=== PATIENT | male | born 1935 | race Caucasian/White ===

== ENCOUNTER 2017-04-25 11:19 | Inpatient (IN) ==
[2017-04-25 11:50] LABS: Basophils # 0.1 10*3/uL (0.0-0.2); Basophils % 0.5 % (0.0-0.8); Eosinophils # 0.3 10*3/uL (0.0-0.87); Eosinophils % 2.1 % (0.00-10.9); Hematocrit 44.2 VOL% (42.0-52.0); Hemoglobin 15.4 GM/DL (14.0-18.0); Immature Granulocytes % 0.4 %; Immature Granulocytes Absolute 0.06 #; Lymphocytes # 1.9 10*3/uL (1.4-4.0); Lymphocytes % 14.1 % (21.2-54.2); Mean Corpuscular HGB Conc 34.8 GM/DL (32-36); Mean Corpuscular Hemoglobin 32 PG (27-34); Mean Corpuscular Volume 90.6 FL (87-102); Mean Platelet Volume 10.2 FL (9.6-12.0); Monocytes # 1.1 10*3/uL (0.11-0.8); Monocytes % 7.8 % (1.7-12.7); Neutrophils # 10.3 10*3/uL (1.4-7.4); Neutrophils % 75.1 % (38.7-73.9); Platelet Count 228 T/CUMM (130-400); Red Blood Count 4.88 MC/CUMM (3.8-5.5); Red Cell Distribution Width 13.7 % (9.3-17.3); White Blood Count 13.7 T/CUMM (4-12)
--- NOTE | 2017-04-25 11:50 | EKG Report ---
Stationary ECG Study [facility] ER Test Date: 04/25/2017 11:26:38 AM Pat Name: GA WEEKS Department: Room: Gender: M Domain Architect: : [id number] Requested by: Rashel Ramos Order Number: [id number] Reading MD: FRANCOIS SALAS Intervals [place] Rate: 73 P: 33 CT: 190 QRS: 1 QRSD: 114 T: -4 QT: 418 QTc: 445 Interpretive Statements SINUS RHYTHM INCOMPLETE RIGHT BUNDLE BRANCH BLOCK VOLTAGE CRITERIA FOR LVH INFERIOR MYOCARDIAL INFARCTION, OF INDETERMINATE AGE ANTEROLATERAL MYOCARDIAL INFARCTION, OF INDETERMINATE AGE Electronically Signed On 04-25-17 18:55:23 CDT by FRANCOIS SALAS [email or web address]
--- NOTE | 2017-04-25 12:07 | XRay Report ---
Exam: XR chest 1V portable Date: 04/25/2017 11:43 AM Indication: Cardiomegaly Comparison: None Findings:: Cardiomegaly is present with previous sternotomy and ASVD. External cardiac leads are present. Mild interstitial edema present. Bony structures reveal previous cortical anchor screws over the left humeral head. Small granulomas present over the left upper chest. Impression: 1. Cardiomegaly with interstitial edema and previous sternotomy. 2. Granuloma changes 3. Findings slightly worse when compared to previous exam PROCEDURE INTERPRETED AT [facility] DEPARTMENT OF RADIOLOGY Final Report Signed by: Dr. Christiano Dumont
[2017-04-25 12:11] LABS: INR 1.8; PT Patient Result 20.1 SECS
--- NOTE | 2017-04-25 12:27 | CT Report ---
Exam: CT scan of brain without contrast Date: 04/25/2017 Indication: Hemiparesthesias Comparison: 03/25/2016 Patient's classification: Emergency department Technical: Images were obtained from the skull base to the vertex without the use of intravenous contrast. Dose reduction was performed with decreasing kv and mA and automated exposure Total DLP: 1025.6 mGy*cm Findings: Small vessel ischemic changes are present. The ventricles are enlarged. Atrophy of the cerebellum and cerebral hemispheres present. No obvious acute hemorrhage or infarction or mass effect. The paranasal sinuses are intact. Globes are unremarkable. Vascular plaque noted Impression: 1. Global atrophy and diffuse small vessel ischemic change without acute hemorrhage infarction or mass effect PROCEDURE INTERPRETED AT [facility] DEPARTMENT OF RADIOLOGY Final Report Signed by: Dr. Christiano Dumont
--- NOTE | 2017-04-25 13:07 | Emergency Department Note ---
IThad Emily, am scribing for, and in the presence of, Rashel Navas MD 11:52. Yosef Santana Phillip K, MD, personally performed the services described in this documentation, ascribed by Mallika Oneil in my presence, and it is both accurate and complete . Arrival - Arrival Chief Complaint: Neuro Stated Complaint: neuro symptoms Limitations: Altered Mental Status, Physical Limitation (expressive aphasia) Source: Family (daughter) - History of Present Illness HPI Narrative: Pt is a 81 y/o male who came to ED by EMS for further evaluation of weakness that onset Saturday. Daughter states pt has been talking sporadically, but none today. She states that pt has sitter, who reported pt's weakness on right side now. He has had several strokes with last leaving him with left sided weakness residual and undergoing physical therapy with walker use (Mar 2016) and had aphasia with other strokes. Family notes sitter was saying pt is having difficulty getting out of bed now, when it was just a chair before. He is on Coumadin due to all the strokes. Pt's team of providers are Dr. Ho PCP, Dr. Martinez in [place], and Dr. Gomez neurologist. Onset (ago): day(s) Consistency: constant Severity: moderate Severity scale (1-10): 5 Quality: other (weakness) Allergies/Adverse Reactions: Allergies Allergy/AdvReac Type Severity Reaction Status Date / Time No Known Allergies Allergy Unverified 03/25/16 19:10 Home Medications: Home Medications Medication Instructions Recorded Confirmed Type Atenolol 25 mg PO DAILY W/SUPPER 03/25/16 03/27/16 History Cetirizine Tab [ZyrTEC Tab] 10 mg PO DAILY 03/25/16 03/27/16 History Cholecalciferol (Vitamin D3) 2,000 unit PO DAILY 03/25/16 03/27/16 History [Vitamin D3] Glimepiride 2 mg PO DAILY 03/25/16 03/27/16 History Levothyroxine Tab [Synthroid Tab] 100 mcg PO DAILY W/SUPPER 03/25/16 03/27/16 History Lisinopril 40 mg PO DAILY 03/25/16 03/27/16 History Metformin HCl 1,000 mg PO DAILY 03/25/16 03/27/16 History Metformin HCl 500 mg PO DAILY W/SUPPER 03/25/16 03/27/16 History amLODIPine [Norvasc] 5 mg PO DAILY 03/25/16 03/27/16 History sitaGLIPtin [Januvia] 100 mg PO DAILY 03/25/16 03/27/16 History Glimepiride 1 mg PO DAILY W/SUPPER 03/26/16 03/27/16 History Warfarin [Coumadin] 2.5 mg PO MoTuThSa@1800 tablet 04/11/16 Rx Warfarin [Coumadin] 5 mg PO SuWeFr@1800 tablet 04/11/16 Rx Review of System - Review of System ROS unobtainable: due to mental status (secondary to expressive aphasia) Medical,Surgical,& Family Hx - Medical History Cardio: History of: CAD, Hypertension Neurology: History of: Cerebrovascular Accident, TIA HEENT: History of: Ear Problem (wears hearing aids), Eye Problem (wears glasses) Endocrine: History of: Diabetes Mellitus (NIDDM) (type 2), Thyroid Disorder ( hypothyroidism) Respiratory: History of: Respiratory Problems (hx SOB small vessel disease) Genitourinary: History of: Prostate Problems (REMOVAL S/P CA) Gastrointestinal: History of: Hemorrhoids (hemorrhiodectomy 1997) - Surgical History Cardiac Surgeries: Sugical HX of: Cardiac Surgery (CABG 2009) HEENT Surgeries: Surgical HX of: Eye Surgery (eyelid cancer spot removed 2015) Patient denies: Tonsilectomy & Adenoidectomy Abdominal Surgeries: Patient denies: Appendectomy, Cholecystectomy Reproductive Surgeries: Surgical HX of;: Prostate Surgery (1999) Orthopedic Surgeries: Surgical HX of;: Orthopedic Surgery (left rotator cuff repair) - Family History Family History: Reports;: Family Cancer (mother-ovarian, sister-lymphoma, brother-lung, brother-bone), Family Heart Disease (brother, sister) Denies;: Family Diabetes, Family Stroke - Social History Smoking Status: Never smoker Exam Vital Signs: Vital Signs Temperature 98.0 F 04/25/17 11:25 Pulse Rate 69 04/25/17 12:15 Respiratory Rate 18 04/25/17 12:15 Blood Pressure 142/86 04/25/17 12:15 O2 Sat by Pulse Oximetry 99 04/25/17 12:15 - General Exam limited due to: other (Exam limited secondary to expressive aphasia) General appearance: alert - Head Head exam: Present: atraumatic, normocephalic - Eye Eye exam: Present: PERRL, EOMI - ENT ENT exam: Present: mucous membranes moist. Absent: mucous membranes dry - Neck Neck exam: Present: full ROM - Chest Chest inspection: Present: symmetric chest wall rise - Respiratory Respiratory exam: Present: rales (bibasilar rales). Absent: normal lung sounds bilaterally, accessory muscle use, respiratory distress - Cardiovascular Cardiovascular exam: Present: regular rate, normal rhythm, normal heart sounds. Absent: murmur, gallop - Abdominal Exam Abdominal exam: Present: soft - Extremities Exam Extremities exam: Present: pedal edema (trace of edema in RLE) - Neurological Exam Neurological exam: Present: alert, CN II-XII intact, other (difficulty comprehending commands). Absent: motor sensory deficit - Skin Skin exam: Present: warm, dry Course Course Narrative: Patient discussed with hospitalist who will admit for further evaluation and neurology consult. Results - Labs CBC & BMP: 04/25/17 11:39 Lab Results: I have reviewed the patients labs Labs: Laboratory Tests 04/25/17 11:39 WBC 13.7 H RBC 4.88 Hgb 15.4 Hct 44.2 Plt Count 228 Neut % (Auto) 75.1 H Lymph % (Auto) 14.1 L Neut # (Auto) 10.3 H [place] # (Auto) 1.1 H - EKG EKG results: interpreted by ERMD (Inferior myocardial infarction and anterolateral myocardial infarction of indeterminate age, voltage criteria for LVH; incomplete RBBB), sinus rhythm (73) - Diagnostic Findings Procedure: Chest x-ray: report reviewed by me (1. Cardiomegaly with interstitial edema and previous sternotomy. 2. Granuloma changes. 3. Findings slightly worse when compared to previous exam.), CT: report reviewed by me ( Head wo con: Global atrophy and diffuse small vessel ischemic change without acute hemorrhage infarction or mass effect.) Disposition Clinical Impression: Possible CVA, Acquired aphasia, Right sided weakness, Cerebrovascular accident Case discussed with: patient, patient's family, patient's physician Disposition: Still a Patient Condition: Guarded Additional Instructions: Admit to the hospitalist.
[2017-04-25 13:16] LABS: Bilirubin,Total 0.8 MG/DL (0.2-1.0); Calcium 9.4 MG/DL (8.5-10.1); Osmolality,Calculated 284.5 MOS/KG (273-304); Potassium 4.1 MMOL/L (3.5-5.1); Total Protein 7.5 G/DL (6.4-8.3)
[2017-04-25] MEDS ORDERED: LABETALOL 20 MG/4 ML SYRINGE IV PRN (13:41)
--- NOTE | 2017-04-25 14:04 | Hospitalist History & Physical ---
Assessment and Plan - Time spent with patient Time spent with patient: Greater than 30 minutes (1) Expressive aphasia Status: Acute Assessment and plan: 81-year-old white male with history of hypertension, diabetes, for previous strokes on Coumadin, CAD status post CABG, prostate cancer status post prostatectomy admitted by the hospitalist service with new onset expressive aphasia and right upper and lower extremity weakness. Will keep patient n.p.o. for now and start IV fluids. Will get MRI of the head and MRA of the neck, echo , lipid panel, hemoglobin A1c, x-ray of right elbow and right hip to rule out fracture or dislocation, PT/OT/ST evaluation. Will also consult neurology who has seen him previously. Dr. Palma has seen and examined patient and further recommendations to follow. Current Visit: Yes (2) Acute ischemic stroke Status: Acute Current Visit: No (3) Type 2 diabetes mellitus Status: Chronic Current Visit: No (4) Chronic anticoagulation Status: Chronic Current Visit: No (5) Hypertension Status: Chronic Current Visit: No (6) Hypothyroidism Status: Chronic Current Visit: No (7) History of stroke Status: Acute Current Visit: No (8) Right sided weakness Status: Acute Current Visit: Yes History of Present Illness Chief complaint: Right-sided weakness History of present illness: Mr. Murphy is a 81 year old white male with history of 4 previous strokes on Coumadin, diabetes, hypertension, prostate cancer status post prostatectomy, and CAD status post CABG presenting to the ED with a 3-4 day history of progressive left-sided weakness, aphasia, and falls. Patient's daughter is in the room and his entire history was taken from her. She states patient's last stroke was March 2016. His baseline is assistance to standing with patient able to ambulate with a walker. He also could speak though he has some expressive aphasia at times. He has 24 hour sitters with him and his demented and home health physical therapy as of the last few weeks. Patient's daughter states he has fallen twice and hit his right elbow. She states after the fall this morning he would no longer weight-bear on the right lower extremity. He is moving all fours, but it is very difficult to evaluate because he will not follow commands. He is alert and looking around but he is not speaking. He is also hard of hearing. He is afebrile and vital signs are stable. His INR is therapeutic at 1.8 otherwise his labs are relatively unremarkable. They were unable to get a UA. Chest x-ray and CT of the head are normal. EKG shows incomplete right bundle branch block. After discussion with Dr. Navas ED physician Dr. Palma the admitting hospitalist, it was agreed patient would be admitted for further evaluation and treatment. Patient' s medications will be reconciled once they are entered into the system and he is a full code. Home Medications Medication Instructions Recorded Confirmed Type Atenolol 25 mg PO DAILY W/SUPPER 03/25/16 03/27/16 History Cetirizine Tab [ZyrTEC Tab] 10 mg PO DAILY 03/25/16 03/27/16 History Cholecalciferol (Vitamin D3) 2,000 unit PO DAILY 03/25/16 03/27/16 History [Vitamin D3] Glimepiride 2 mg PO DAILY 03/25/16 03/27/16 History Levothyroxine Tab [Synthroid Tab] 100 mcg PO DAILY W/SUPPER 03/25/16 03/27/16 History Lisinopril 40 mg PO DAILY 03/25/16 03/27/16 History Metformin HCl 1,000 mg PO DAILY 03/25/16 03/27/16 History Metformin HCl 500 mg PO DAILY W/SUPPER 03/25/16 03/27/16 History amLODIPine [Norvasc] 5 mg PO DAILY 03/25/16 03/27/16 History sitaGLIPtin [Januvia] 100 mg PO DAILY 03/25/16 03/27/16 History Glimepiride 1 mg PO DAILY W/SUPPER 03/26/16 03/27/16 History Warfarin [Coumadin] 2.5 mg PO MoTuThSa@1800 tablet 04/11/16 Rx Warfarin [Coumadin] 5 mg PO SuWeFr@1800 tablet 04/11/16 Rx Allergies Allergy/AdvReac Type Severity Reaction Status Date / Time No Known Allergies Allergy Unverified 03/25/16 19:10 Medical,Surgical,& Family Hx - Medical History Cardio: History of: CAD, Hypertension Neurology: History of: Cerebrovascular Accident, TIA HEENT: History of: Ear Problem (wears hearing aids), Eye Problem (wears glasses) Endocrine: History of: Diabetes Mellitus (NIDDM) (type 2), Thyroid Disorder ( hypothyroidism) Respiratory: History of: Respiratory Problems (hx SOB small vessel disease) Genitourinary: History of: Prostate Problems (REMOVAL S/P CA) Gastrointestinal: History of: Hemorrhoids (hemorrhiodectomy 1997) - Surgical History Cardiac Surgeries: Sugical HX of: Cardiac Surgery (CABG 2009) HEENT Surgeries: Surgical HX of: Eye Surgery (eyelid cancer spot removed 2015) Patient denies: Tonsilectomy & Adenoidectomy Abdominal Surgeries: Patient denies: Appendectomy, Cholecystectomy Reproductive Surgeries: Surgical HX of;: Prostate Surgery (1999) Orthopedic Surgeries: Surgical HX of;: Orthopedic Surgery (left rotator cuff repair) - Family History Family History: Reports;: Family Cancer (mother-ovarian, sister-lymphoma, brother-lung, brother-bone), Family Heart Disease (brother, sister) Denies;: Family Diabetes, Family Stroke - Social History Smoking Status: Never smoker Frequency of Alcohol Use: None Type of Drug Use: None Marital Status: Lives With:: Spouse Functional capacity: uses cane/walker ROS unobtainable: other (Due to expressive aphasia) Exam - Constitutional Vitals: Period Temp Pulse Resp BP Sys/[place] Pulse Ox Last 24 Hr 98.0 F-98.0 F 66-72 16-23 138-156/85-97 99-100 Exam: Constitutional System: No distress. [No] tremulousness. Head: Normocephalic, atraumatic. Ears, Nose and Throat System: No evidence of Otitis or Mastoiditis. No epistaxis or discharge Eyes System: Pupils equal, round, and reactive. Extraocular muscles intact. Neck: Supple, without adenopathy, [No] jugular venous distention. No thyromegaly , neck mass, or prior surgery apparent. Respiratory System: Chest [clear] to auscultation. Cardiovascular System: Heart with [regular] rate and rhythm. [No] murmur. GI System: Abdomen [soft], [non]tender. [Normo]active bowel sounds present. Small reducible umbilical hernia that is nontender Musculoskeletal System: limbs with [no] pedal edema. [Full] distal pulses. Moves bilateral lower extremities equally but unable to determine sensation or strength due to patient unable to follow commands, moves bilateral upper extremities but right upper extremity seems to be more sluggish than left. Right elbow is edematous and bruised the patient does not grimace with palpation. Neurological System: Expressive aphasia, unable to evaluate sensation, Babinski negative Psychiatric System: Patient is unable to converse Results - Labs CBC & BMP: 04/25/17 11:39 04/25/17 11:39 Lab Results: I have reviewed the past 24 hour labs - EKG EKG results: sinus rhythm - Impressions Incomplete right bundle branch block, LVH, inferior AK of indeterminate age, anterolateral myocardial infarction of indeterminate age - Diagnostic Findings Procedure: Chest x-ray: report reviewed by me (Cardiomegaly with interstitial edema and previous sternotomy, granuloma changes, findings slightly worse when compared to previous exam), CT: report reviewed by me (CT that shows global atrophy and diffuse small vessel ischemic change without acute hemorrhage infarction or mass-effect) Quality Measures - VTE Contraindication to Pharmacological VTE Prophylaxis: Already on Theraputic Agent , No Prophylaxis Needed - Stroke Onset of Symptoms Date: 04/23/17 Symptom Onset Unknown: Yes
[2017-04-25 14:14] LABS: Risk Ratio 6.36; VLDL CHOLESTEROL 59.8 MG/DL
[2017-04-25 14:16] LABS: Troponin I Only 0.069 NG/ML (0.00-0.045)
--- NOTE | 2017-04-25 14:44 | XRay Report ---
Exam: XR elbow 2V RT Date: 04/25/2017 1:56 PM Indication: Pain secondary to fall Comparison: None Technical: AP lateral oblique image 3 views Findings: The radial head appears intact there is heterotopic calcification present along the coronoid process of the ulna. No obvious joint effusion or hemarthrosis present. Degenerative change present in the posterior olecranon region with mild degenerative changes of the medial and lateral epicondyles. Impression: Degenerative arthritic change without obvious acute fracture. PROCEDURE INTERPRETED AT [facility] DEPARTMENT OF RADIOLOGY Final Report Signed by: Dr. Christiano Dumont
--- NOTE | 2017-04-25 14:45 | XRay Report ---
Exam: XR hip 2V RT Date: 04/25/2017 1:56 PM Indication: Pain secondary to fall Comparison: None Technical: AP lateral views Findings: The pubic rami are intact. The greater lesser trochanteric regions are intact the femoral head is seated within acetabular region. The proximal femoral shaft is unremarkable. Impression: 1. No obvious fracture dislocation with mild degenerative arthritic change present. PROCEDURE INTERPRETED AT [facility] DEPARTMENT OF RADIOLOGY Final Report Signed by: Dr. Christiano Duomnt
--- NOTE | 2017-04-25 16:07 | XRay Report ---
XR forearm BI, 2 views; XR hand, 2V BI Clinical Information: MRI Clearance Comparison: None available Findings: 3.8 mm radiopaque density is adjacent to the MCP joint of the pointing finger of the left hand, which is indeterminate. No definite acute fractures are identified. Otherwise, no radiopaque foreign bodies are identified in the soft tissues. Generalized osteopenia is noted. Degenerative changes at the elbow joint are noted with no joint effusion. There is also degenerative changes at the radiocarpal joint with widening of the scapholunate interval (only well visualized on the right) suggesting chronic slack wrist deformity. Degenerative changes and near complete ankylosis of the PIP joint of the left hand pointing finger is noted. Impression: Metallic/radiopaque density adjacent to the MCP joint of the pointing finger of the left hand measures up to 3.8 mm maximum dimension and is indeterminate. Otherwise, no radiopaque/metallic foreign bodies visualized in the soft tissues of the bilateral forearms or right hand. No acute findings. Degenerative changes as detailed above. PROCEDURE INTERPRETED AT [facility] DEPARTMENT OF RADIOLOGY Final Report Signed by: Shukri Ellington
--- NOTE | 2017-04-25 18:03 | Magnetic Resonance Report ---
MR head/brain wo con Indication: Stroke Comparison: Noncontrast CT head dated 02/24/2017. Prior MRI brain 03/26/2016 Technique: Using 1.5 Lena magnet, multisequence multiplanar MR imaging of the brain was performed without the administration of intravenous contrast. Findings: Extensive patient motion limits evaluation for subtle findings. The study is limited with only sagittal T1 and axial diffusion, axial T2 FLAIR and axial ADC map imaging sequences obtained. The subsequent MRA carotids was canceled due to extensive patient motion. Extensive atrophy is noted with prominence of sulci and ventricles. Punctate focus of increased diffusion signal within the left thalamus posteriorly and inferiorly without definite ADC map abnormality although patient motion may limit correlation of this finding. Otherwise, there is no obvious evidence of restricted diffusion. Extensive T2/FLAIR signal hyperintensities are noted bilaterally within the periventricular white matter as well as the bilateral centrum semiovale. These are most compatible with microvascular ischemic changes. The basal cisterns appear patent. Similar prominence of the lateral ventricles may represent a degree of underlying normal pressure hydrocephalus. Impression: 1. Limited study due to patient motion. 2. Possible focus of restricted diffusion within the posterior left thalamus suggestive of focal lacunar infarct. Evaluation is limited due to extensive patient motion. Correlate with clinical symptomatology. 3. No mass effect or midline shift. Similar prominence of the ventricles may represent a degree of underlying normal pressure hydrocephalus. MRA carotids will not be performed due to extensive patient motion. 04/25/2017 5:53 PM PROCEDURE INTERPRETED AT [facility] DEPARTMENT OF RADIOLOGY Final Report Signed by: Shukri Ellington
[2017-04-25 18:37] LABS: Apearance,Urine CLEAR (Clear); Bilirubin,Urine Negative (Negative); Blood, Urine Negative (Negative); Glucose,Urine (UA) Negative (Negative); Ketones,Urine Negative (Negative); Mucus,Urine Occasional /LPF (Occasional); Nitrite,Urine Negative (Negative); Protein,Urine 30 MG/DL; Urine Color Yellow (Yellow); Urine Specific Gravity 1.026 (1.001-1.035); WBC,Urine 1 /HPF (0-6)
[2017-04-25] MEDS: WARFARIN 3 MG TABLET PO SCH (18:43)
[2017-04-25] MEDS: ASPIRIN EC 81 MG TABLET PO SCH (18:43)
[2017-04-25] MEDS: SODIUM CHLORIDE 0.9% 1,000 ML IV SCH (18:44)
--- NOTE | 2017-04-25 20:13 | ECHO Report ---
Perla Murphy Exam Date: 04/25/2017 16:38 Referring Physician: Technologist: Abi Hughes RDCS Age: 81 Ht (in): 72 Wt (lb): 200 Gender: M Exam Location: [facility] Echo Indications: Expressive aphasia, Acute ischemic stroke, NIDDM, Chronic anticoagulation, CAD with previous CABG, Falls, Hypothyroidism, Right sided weakness BP: 150 / 92 HR: 68 Rhythm: Sinus Technical Quality: Poor IMPRESSIONS At least moderately reduced LV systolic function with ejection fraction estimated at 35%. Grade 1/4 diastolic dysfunction. Mild concentric left ventricular hypertrophy. Mild aortic, tricuspid and pulmonic regurgitation. There is both mitral and aortic sclerosis without significant stenosis. Please note that the valves in the study are suboptimally visualized. MEASUREMENTS (Male / Female) Normal Values 2D ECHO LV Diastolic Diameter PLAX 4.9 cm 4.2 - 5.9 / 3.9 - 5.3 cm LV Systolic Diameter PLAX 4.1 cm LV Fractional Shortening PLAX 15.8 % IVS Diastolic Thickness 1.2 cm 0.6 - 1.0 / 0.6 - 0.9 cm LVPW Diastolic Thickness 1.2 cm 0.6 - 1.0 / 0.6 - 0.9 cm RV Internal Dim ED PLAX 2.9 cm Aortic Root Diameter 3.4 cm LA Systolic Diameter LX 3.6 cm 3.0 - 4.0 / 2.7 - 3.8 cm DOPPLER TR Peak Velocity 231.0 cm/s TR Peak Gradient 21.3 mmHg FINDINGS Left Ventricle Normal left ventricular cavity size. Mild left ventricular hypertrophy. Left ventricular ejection fraction is estimated at 35 %. There is poor endocardial resolution which hinders regional wall motion assessment. There is grade 1/4 diastolic dysfunction. Right Ventricle The right ventricle is normal in size and function. Right Atrium The right atrium is normal in size. Left Atrium The left atrium is normal in size. Mitral Valve Morphologically normal mitral valve without significant stenosis or prolapse. There is no mitral regurgitation. Aortic Valve Mild aortic valve sclerosis without stenosis. Trace to mild aortic valve regurgitation. Tricuspid Valve Morphologically normal tricuspid valve. Trace to mild tricuspid valve regurgitation. Tricuspid regurgitation velocities suggest a PAP of 31 mmHg. Pulmonic Valve Morphologically normal pulmonic valve. Trace pulmonary valve regurgitation. Pericardium Normal pericardium without effusion. Aorta Normal ascending aorta dimension. Lisa Vega MD (Electronically Signed) Final Date: 25 April 2017 20:12
[2017-04-25] MEDS: GLIMEPIRIDE 4 MG TABLET PO SCH ×2 (21:08→23:08)
[2017-04-25] MEDS: ATENOLOL 25 MG TABLET PO SCH ×2 (21:08→23:08)
[2017-04-26] MEDS: SODIUM CHLORIDE 0.9% 1,000 ML IV SCH ×2 (02:47→11:25)
[2017-04-26 08:45] LABS: Basophils # 0.1 10*3/uL (0.0-0.2); Basophils % 0.7 % (0.0-0.8); Eosinophils # 0.4 10*3/uL (0.0-0.87); Eosinophils % 4.6 % (0.00-10.9); Hematocrit 39.9 VOL% (42.0-52.0); Hemoglobin 13.7 GM/DL (14.0-18.0); Immature Granulocytes % 0.4 %; Immature Granulocytes Absolute 0.03 #; Lymphocytes # 2.1 10*3/uL (1.4-4.0); Lymphocytes % 25.7 % (21.2-54.2); Mean Corpuscular HGB Conc 34.3 GM/DL (32-36); Mean Corpuscular Hemoglobin 32 PG (27-34); Mean Corpuscular Volume 91.7 FL (87-102); Mean Platelet Volume 10.7 FL (9.6-12.0); Monocytes # 0.8 10*3/uL (0.11-0.8); Monocytes % 9.3 % (1.7-12.7); Neutrophils # 4.9 10*3/uL (1.4-7.4); Neutrophils % 59.3 % (38.7-73.9); Platelet Count 217 T/CUMM (130-400); Red Blood Count 4.35 MC/CUMM (3.8-5.5); Red Cell Distribution Width 13.9 % (9.3-17.3); White Blood Count 8.2 T/CUMM (4-12)
[2017-04-26 09:11] LABS: Calcium 8.4 MG/DL (8.5-10.1); INR 1.7; Osmolality,Calculated 281.3 MOS/KG (273-304); PT Patient Result 18.5 SECS
[2017-04-26] MEDS ORDERED: FUROSEMIDE 40 MG/4 ML VIAL IV ONE (09:13)
--- NOTE | 2017-04-26 11:21 | Event Note ---
Patient gone for MRA
[2017-04-26] MEDS: CHOLECALCIFEROL 1,000 UNIT TABLET PO SCH (12:31)
[2017-04-26] MEDS: LEVOTHYROXINE 100 MCG TABLET PO SCH (12:31)
[2017-04-26] MEDS: sitaGLIPtin 100 MG TABLET PO SCH (12:31)
[2017-04-26] MEDS: ATENOLOL 25 MG TABLET PO SCH ×2 (12:31→20:53)
[2017-04-26] MEDS: ASPIRIN EC 81 MG TABLET PO SCH (12:31)
[2017-04-26] MEDS: LISINOPRIL 20 MG TABLET PO SCH (12:31)
[2017-04-26] MEDS: GLIMEPIRIDE 4 MG TABLET PO SCH ×2 (12:32→20:53)
--- NOTE | 2017-04-26 12:37 | Magnetic Resonance Report ---
Exam: MR angiography of the neck Exam date: April 26, 2017 1056 hours Indication: 81-year-old male with stroke Comparison: March 26, 2016 Technique: Magnetic resonance angiography was performed in routine fashion prior to and after administration administration of gadolinium-based intravenous contrast Findings: Motion artifact degrades the origins of the common carotid arteries. Coarsened caliber of the visualized common carotid arteries are normal with no impedance of flow. Marked tortuosity of the internal carotid arteries with focal narrowing in keeping left of expected 60-70% and approximately 20-30% on the right, unchanged in appearance since interval study. Mid to distal internal carotid arteries demonstrate normal caliber, flow and enhancement through the cavernous and supraclinoid segments. Visualized vertebral arteries are unremarkable Impression: 1. Again marked tortuosity of the proximal internal carotid arteries with suggestion of kinking and narrowing on the left of approximately 60-70% and up to 25% on the right. This can be further characterized with CTA head and neck PROCEDURE INTERPRETED AT [facility] DEPARTMENT OF RADIOLOGY Final Report Signed by: Eliseo Yun
--- NOTE | 2017-04-26 13:30 | Hospitalist Progress Note ---
Assessment and Plan (1) Acute CVA (cerebrovascular accident) Status: Acute Assessment and plan: 1)acute stroke- with worsened right side weakness and worsening aphasia- added asa to coumadin, monitor INR. MRi with possible left side stroke, motion artifact. MRA with narrowing of left carotid. Family has been interested in surgery so I will consult DR Jacobs though he may not be a great candidate for surgery. Dr Gomez to see, echo pending. Family would like for him to go to [facility]- referral made. PT and OT and ST to see. 2)DM- well controlled. 3)HTN- BP control ok after stroke- monitor 4)on coumadin- INR is 1.7. give extra 5mg today. Current Visit: No (2) Type 2 diabetes mellitus Status: Chronic Current Visit: No (3) Chronic anticoagulation Status: Chronic Current Visit: No (4) Hypertension Status: Chronic Current Visit: No (5) Hypothyroidism Status: Chronic Current Visit: No (6) Right sided weakness Status: Acute Current Visit: Yes Hospitalist: Subjective Interval history: Mr Murphy is more communicative this morning and tried to talk though I had a hard time understanding him. He is moving the left side of his body to command today and his right face looks less weak. He dose not move his right leg or arm , but moves the foot and fingers some. His sitter is with him this morning and was very helpful. She knows him well. He is hot and taking his clothes off. Exam - Constitutional Vitals: Period Temp Pulse Resp BP Sys/Motta Pulse Ox Last 24 Hr 97.0 F-98.2 F 67-84 18-20 132-173/72-98 90-100 General appearance: no acute distress, over weight - Eye Eye exam: Present: EOMI. Absent: scleral icterus - Respiratory Respiratory exam: Present: clear to auscultation bilaterally - Cardiovascular Cardiovascular exam: Present: regular rate and rhythm - GI/Abdominal GI/Abdominal exam: Present: normal bowel sounds, soft - Extremities Exam Extremities exam: Absent: edema - Neurological Exam Neurological exam: Present: alert, other (right face droop, moves left arm and leg with strength to command, talking today and alert and following conversation. right arm and leg weak, he does not move more than his fingers and foot.) Results - Labs CBC & BMP: 04/26/17 07:46 04/26/17 07:46 Lab Results: I have reviewed the past 24 hour labs Quality Measures - VTE Contraindication to Pharmacological VTE Prophylaxis: Already on Theraputic Agent , No Prophylaxis Needed - Stroke Onset of Symptoms Date: 04/23/17 Symptom Onset Unknown: Yes
[2017-04-26] MEDS: cephALEXin 500 MG CAPSULE PO SCH ×2 (16:37→20:53)
[2017-04-26] MEDS ORDERED: WARFARIN 5 MG TABLET PO ONE (18:00)
[2017-04-26] MEDS ORDERED: WARFARIN 3 MG TABLET PO SCH (18:00)
[2017-04-27 06:09] LABS: Basophils # 0.1 10*3/uL (0.0-0.2); Basophils % 0.8 % (0.0-0.8); Eosinophils # 0.4 10*3/uL (0.0-0.87); Eosinophils % 4.2 % (0.00-10.9); Hematocrit 41.8 VOL% (42.0-52.0); Hemoglobin 14.1 GM/DL (14.0-18.0); Immature Granulocytes % 0.8 %; Immature Granulocytes Absolute 0.07 #; Lymphocytes % 23.1 % (21.2-54.2); Mean Corpuscular HGB Conc 33.7 GM/DL (32-36); Mean Corpuscular Hemoglobin 31 PG (27-34); Mean Corpuscular Volume 92.1 FL (87-102); Mean Platelet Volume 10.2 FL (9.6-12.0); Monocytes # 0.9 10*3/uL (0.11-0.8); Monocytes % 10.2 % (1.7-12.7); Neutrophils # 5.4 10*3/uL (1.4-7.4); Neutrophils % 60.9 % (38.7-73.9); Platelet Count 218 T/CUMM (130-400); Red Blood Count 4.54 MC/CUMM (3.8-5.5); Red Cell Distribution Width 13.6 % (9.3-17.3); White Blood Count 8.9 T/CUMM (4-12)
[2017-04-27 06:32] LABS: INR 1.7; PT Patient Result 18.6 SECS
[2017-04-27 06:39] LABS: Calcium 8.8 MG/DL (8.5-10.1); Osmolality,Calculated 283.3 MOS/KG (273-304); Potassium 3.8 MMOL/L (3.5-5.1)
[2017-04-27] MEDS: LEVOTHYROXINE 100 MCG TABLET PO SCH (09:54)
[2017-04-27] MEDS: LISINOPRIL 20 MG TABLET PO SCH (09:54)
[2017-04-27] MEDS: cephALEXin 500 MG CAPSULE PO SCH ×2 (09:54→13:17)
[2017-04-27] MEDS: CHOLECALCIFEROL 1,000 UNIT TABLET PO SCH (09:54)
[2017-04-27] MEDS: GLIMEPIRIDE 4 MG TABLET PO SCH ×2 (09:55→21:58)
[2017-04-27] MEDS: ATENOLOL 25 MG TABLET PO SCH ×2 (09:55→21:58)
[2017-04-27] MEDS: ASPIRIN EC 81 MG TABLET PO SCH (09:55)
[2017-04-27] MEDS: sitaGLIPtin 100 MG TABLET PO SCH (09:57)
--- NOTE | 2017-04-27 11:44 | Hospitalist Progress Note ---
Assessment and Plan - Time spent with patient Time spent with patient: Less than 30 minutes (1) Expressive aphasia Status: Acute Assessment and plan: 81-year-old white male with history of hypertension, diabetes, for previous strokes on Coumadin, CAD status post CABG, prostate cancer status post prostatectomy admitted by the hospitalist service with new onset expressive aphasia and right upper and lower extremity weakness. Will keep patient n.p.o. for now and start IV fluids. Will get MRI of the head and MRA of the neck, echo , lipid panel, hemoglobin A1c, x-ray of right elbow and right hip to rule out fracture or dislocation, PT/OT/ST evaluation. Will also consult neurology who has seen him previously. Dr. Palma has seen and examined patient and further recommendations to follow. 04/27/2017 patient improved today. He is smiling but still nonverbal. MRI was showing possible left-sided stroke, MRA showing narrowing of the left carotid. He is moving all 4 spontaneously but not to command. He has been evaluated by speech and occupational therapy but the physical therapist evaluation is pending. Will check on this. Patient can transfer to [facility] rehab if okay with Dr. Gomez. neurology consult is pending. Aspirin and Coumadin have been started and we are monitoring INR which is 1.7 today. Patient did have some cellulitis to the left arm from IV infiltration and he was given a dose of Keflex for this. This seems to have resolved. Dr. Jacobs has also been consulted for carotids but he most likely will not recommend surgery until patient recovers from acute stroke. Patient's daughter is stating right now she is not interested in carotid surgery anyway but does not mind Dr. Jacobs following. Patient's blood pressures are up to 179/90 this morning. He is on atenolol and lisinopril. Will discuss with Dr. Pelaez if he feels it is necessary to adjust medications. Dr. Pelaez to see and examine patient and further recommendations to follow. Current Visit: Yes (2) Acute ischemic stroke Status: Acute Current Visit: No (3) Type 2 diabetes mellitus Status: Chronic Current Visit: No (4) Chronic anticoagulation Status: Chronic Current Visit: No (5) Hypertension Status: Chronic Current Visit: No (6) Hypothyroidism Status: Chronic Current Visit: No (7) History of stroke Status: Acute Current Visit: No (8) Right sided weakness Status: Acute Current Visit: Yes Hospitalist: Subjective Interval history: Patient is happy and smiling but still nonverbal. He is understanding and nodding his head yes or no appropriately but he still will not follow commands with motor function. Daughter is in the room and states that he did feed himself this morning. She is agreeable to [facility] rehab if possible. Daughter states she is not interested in carotid surgery but agreeable to have Dr. Jacobs closely monitor him. Patient has been seen by OT and ST but PT note is still pending. Exam - Constitutional Vitals: Period Temp Pulse Resp BP Sys/Motta Pulse Ox Last 24 Hr 96.5 F-98.2 F 61-83 18-22 130-179/64-90 92-99 Exam: 81-year-old white male, no acute distress, alert, nonverbal Chest clear CV regular rate and rhythm Abdomen soft nontender Extremities no edema, moving all fours spontaneously but will not follow commands Results - Labs CBC & BMP: 04/27/17 05:26 04/27/17 05:26 Lab Results: I have reviewed the past 24 hour labs Quality Measures - VTE Contraindication to Pharmacological VTE Prophylaxis: Already on Theraputic Agent , No Prophylaxis Needed - Stroke Onset of Symptoms Date: 04/23/17 Symptom Onset Unknown: Yes
[2017-04-27] MEDS ORDERED: diphenhydrAMINE CAP 25 MG CAPSULE PO PRN (11:55)
[2017-04-27] MEDS ORDERED: ACETAMINOPHEN 325 MG TABLET PO PRN ×2 (11:55)
--- NOTE | 2017-04-27 12:55 | Neurology Consult Note ---
History of Present Illness History of present illness: 81-year-old white gentleman with history of hypertension, diabetes, previous strokes on Coumadin, CAD status post CABG, prostate cancer status post prostatectomy admitted to the hospital with new onset of difficulty with speech and right upper and lower extremity weakness. This started couple of days ago. MRI of the brain revealed acute left thalamic infarct. MRA of the carotid artery reveals possible left carotid stenosis 60-70%. Ejection fraction of 35% on the current echo. Patient is on Coumadin and INR is 1.7. Home Medications Medication Instructions Recorded Confirmed Type Atenolol 25 mg PO BID 03/25/16 04/25/17 History Cetirizine Tab [ZyrTEC Tab] 10 mg PO QAM 03/25/16 04/25/17 History Cholecalciferol (Vitamin D3) 2,000 unit PO QAM 03/25/16 04/25/17 History [Vitamin D3] Levothyroxine Tab [Synthroid Tab] 100 mcg PO QAM 03/25/16 04/25/17 History Lisinopril 40 mg PO QAM 03/25/16 04/25/17 History sitaGLIPtin [Januvia] 100 mg PO QAM 03/25/16 04/25/17 History Glimepiride [Glimepiride] 4 mg PO BID 04/25/17 04/25/17 History Metformin HCl [Metformin HCl ER] 500 mg PO BID W/MEALS 04/25/17 04/25/17 History Warfarin Sodium [Coumadin] 6 mg PO SUTUTHSA@1800 04/25/17 04/25/17 History Warfarin [Coumadin] 3 mg PO MOWEFR@1800 04/25/17 04/25/17 History Allergies Allergy/AdvReac Type Severity Reaction Status Date / Time No Known Allergies Allergy Unverified 03/25/16 19:10 12 point system: reviewed and no additional remarkable complaints except as stated Medical,Surgical,& Family Hx - Medical History Cardio: History of: CAD, Hypertension Neurology: History of: Cerebrovascular Accident, TIA HEENT: History of: Ear Problem (wears hearing aids), Eye Problem (wears glasses) Endocrine: History of: Diabetes Mellitus (NIDDM) (type 2), Thyroid Disorder ( hypothyroidism) Respiratory: History of: Respiratory Problems (hx SOB small vessel disease) Genitourinary: History of: Prostate Problems (REMOVAL S/P CA) Gastrointestinal: History of: Hemorrhoids (hemorrhiodectomy 1997) - Surgical History Cardiac Surgeries: Sugical HX of: Cardiac Surgery (CABG 2009) HEENT Surgeries: Surgical HX of: Eye Surgery (eyelid cancer spot removed 2015) Patient denies: Tonsilectomy & Adenoidectomy Abdominal Surgeries: Patient denies: Appendectomy, Cholecystectomy Reproductive Surgeries: Surgical HX of;: Prostate Surgery (1999) Orthopedic Surgeries: Surgical HX of;: Orthopedic Surgery (left rotator cuff repair) - Family History Family History: Reports;: Family Cancer (mother-ovarian, sister-lymphoma, brother-lung, brother-bone), Family Heart Disease (brother, sister) Denies;: Family Diabetes, Family Stroke - Social History Smoking Status: Never smoker Frequency of Alcohol Use: None Type of Drug Use: None Exam - Constitutional Vitals: Period Temp Pulse Resp BP Sys/Motta Pulse Ox Last 24 Hr 96.5 F-98.0 F 61-79 18-22 130-179/64-90 92-96 Exam: GENERAL: Patient is in no acute distress. NECK: Neck is supple. There is no JVD. No carotid bruits present. No thyroid masses. CVS: First and second heart sounds are normal. There is no S3 present. Regular rate and rhythm. RESPIRATORY: Lungs are clear to auscultation without any rales or rhonchi. ABDOMEN: Soft and non-tender. Bowel sounds are present. There is no hepatosplenomegaly. EXT: There is no palpable edema. Peripheral pulses are present. Skin: No rashes Central Nervous system: General: Alert, awake Speech: Nonfluent Comprehension: Intact and normal Facial expressions: Normal Cranial Nerves: CN1/Olfactory: Normal CN II/ Optic: Normal, Visual Reardon unreliable CN III, and : KIMBER & EOMI CN V: Normal & intact CN VII: face is symmetric CNVIII: Normal CN XI/X/XI/XII: Intact and Normal Motor: Bulk and Tone is normal. Strength in the right 3/5 Strength in the left 5/5 Sensory: Unreliable Reflexes: 1+ and symmetrical Cerebellar function: Not tested Toes: Equivocal Gait: Not tested Results - Labs CBC & BMP: 04/27/17 05:26 04/27/17 05:26 Assessment and Plan (1) Acute CVA (cerebrovascular accident) Status: Acute Assessment and plan: Continue Coumadin Targeted INR between 2 and 3 Do not think patient is a good candidate for any kind of surgery so would not pursue CTA carotids. We will take him to [facility] once cleared from medical standpoint Current Visit: No
[2017-04-27] MEDS ORDERED: WARFARIN 3 MG TABLET PO ONE (13:49)
[2017-04-27] MEDS: WARFARIN 3 MG TABLET PO SCH (17:53)
[2017-04-27] MEDS ORDERED: ATORVASTATIN 40 MG TABLET PO SCH (21:00)
[2017-04-28] MEDS ORDERED: GLUCAGON 1 MG VIAL IM PRN (08:01)
[2017-04-28] MEDS ORDERED: DEXTROSE 50% 25 GM/50 ML SYRINGE IV PRN (08:01)
[2017-04-28 09:07] LABS: INR 2.3; PT Patient Result 25.5 SECS
[2017-04-28] MEDS: CETIRIZINE 10 MG TABLET PO SCH (09:17)
[2017-04-28] MEDS: LISINOPRIL 20 MG TABLET PO SCH (09:17)
[2017-04-28] MEDS: CHOLECALCIFEROL 1,000 UNIT TABLET PO SCH (09:17)
[2017-04-28] MEDS: ATENOLOL 25 MG TABLET PO SCH ×2 (09:18→18:12)
[2017-04-28] MEDS: sitaGLIPtin 100 MG TABLET PO SCH (09:18)
[2017-04-28] MEDS: GLIMEPIRIDE 4 MG TABLET PO SCH ×2 (09:18→18:12)
[2017-04-28] MEDS: ASPIRIN EC 81 MG TABLET PO SCH (09:18)
[2017-04-28] MEDS: LEVOTHYROXINE 100 MCG TABLET PO SCH (09:18)
--- NOTE | 2017-04-28 10:16 | Discharge Summary ---
<Zenia Htuson - Last Filed: 04/28/17 10:43> Hospital Course - Hospital Course Hospital Course: 81-year-old white male with history of hypertension, diabetes, previous strokes on Coumadin, CAD status post CABG, prostate cancer status post prostatectomy admitted by the hospitalist service on 04/25/2017 with new onset expressive aphasia and right upper and lower extremity weakness. MRI of the head shows left-sided stroke and MRA shows narrowing of the left carotid artery. Patient has recovered approximately 75% of his previous function. He was nonverbal upon admission and he is speaking deliberately now a little bit. He still not follow commands but he can answer simple questions. Patient's diabetes and hypertension are well controlled. His Coumadin was subtherapeutic but today it is 2.3. Patient underwent PT, OT, and speech and will be transferred to [facility] for therapy today. Patient was also found to have elevated cholesterol triglycerides and he has been started on Lipitor. Dr. Gomez from neurology did follow the patient. Dr. Jacobs from vascular surgery was also consulted to evaluate the carotids. Daughter states they do not think they would be interested in surgery at this point in time. Patient is being transferred today to [facility]. Complete discharge instructions were given. Care coordination, chart review, completed discharge paperwork took approximately 47 minutes. I evaluated this patient and completed an independent history and physical examination. I coordinated care with DAPHNEY Weber PA-C. I agree with the documentation that she provides below. The patient's home medications were reviewed and reconciled. He is being discharged to swing bed. He remains a full code. His daughter is his primary caregiver and surrogate decision maker. He has sitters at home. - Time spent with patient Time with patient DS: Greater than 30 minutes Diagnosis - Discharge Diagnosis (1) Expressive aphasia Status: Chronic (2) Acute ischemic stroke Status: Acute (3) Type 2 diabetes mellitus Status: Chronic (4) Chronic anticoagulation Status: Chronic (5) Hypertension Status: Chronic (6) Hypothyroidism Status: Chronic (7) History of stroke Status: Chronic (8) Right sided weakness Status: Chronic Specialty Discharge - Follow Up or Referrals Follow up with: your, PCP [Other] - 1 Month Discharge Plan - Discharge Data Disposition: Disch/Xfer-Ip Rehab Fac - Discharge Medications New RX: Aspirin EC Tab 81 mg PO DAILY tablet RX: Warfarin [Coumadin] 4 mg PO MOWEFR@1800 tablet RX: Atorvastatin [Lipitor] 40 mg PO BEDTIME tablet Continue RX: Levothyroxine Tab [Synthroid Tab] 100 mcg PO QAM RX: Cetirizine Tab [ZyrTEC Tab] 10 mg PO QAM RX: sitaGLIPtin [Januvia] 100 mg PO QAM RX: Lisinopril 40 mg PO QAM RX: Cholecalciferol (Vitamin D3) [Vitamin D3] 2,000 unit PO QAM RX: Atenolol 25 mg PO BID RX: Glimepiride 4 mg PO BID RX: Metformin HCl [Metformin HCl ER] 500 mg PO BID W/MEALS RX: Warfarin Sodium [Coumadin] 6 mg PO SUTUTHSA@1800 Discontinued Warfarin [Coumadin] 3 mg PO MOWEFR@1800 - Follow Up or Referral Follow Up: your, PCP [Other] - 1 Month - Forms/Instructions Exam - Constitutional Vitals: Period Temp Pulse Resp BP Sys/Motta Pulse Ox Last 24 Hr 97.5 F-98.4 F 50-82 18-23 127-179/72-93 92-96 Exam: 81-year-old white male, no acute distress, alert with expressive aphasia Chest clear CV regular rate and rhythm Abdomen soft nontender Extremities no edema, moves all fours but not to command Discharge Results Procedures and tests throughout hospitalization: Pending Orders 04/29/17 04:00 Prothrombin Time INR IN AM 04/30/17 04:00 Prothrombin Time INR IN AM Labs on day of discharge: Labs from last 24 hours 04/28/17 04/28/17 08:23 07:49 INR 2.3 PT Patient/Control Mix 25.5 D POC Glucose 184 H DS: Provider Date of admission: 04/25/17 13:15 Primary care physician: . No PCP Attending physician on admission: Dulce Palma MD Consults: 04/25/17 13:42 Consult to Case Mgmt/Social Srvs [CONS] Routine Reason for Case Mgmt/Social Srvs: Discharge Planning Consult to Occupational Therapy [CONS] Routine Reason for Occupational Therapy: Evaluate and Treat Consult Comment: Stroke Consult to Physical Therapy [CONS] Routine Reason for Physical Therapy: Evaluate and Treat Consult Comment: stroke 04/25/17 13:53 Consult to Physician [CONS] Routine Comment: pt of yours, new left sided weakness Consulting Provider: Rajat Gomez When should Consulting Provider be notified: Now Consult to Specialist Group: Neurology Person Notified: Una Date Notified: 04/26/17 Time Notified: 08:45 04/26/17 09:14 Consult to Case Mgmt/Social Srvs [CONS] Routine Reason for Case Mgmt/Social Srvs: Discharge Planning Consult Comment: family requests [facility] 04/26/17 13:26 Consult to Physician [CONS] Routine Comment: Carotid disease Consulting Provider: Kaushal Jacobs Consult Notification Comment: Consult on 04/29/2017 Discharging clinician: MERRY Nieto <Lowell Pelaez - Last Filed: 04/28/17 13:39> Diagnosis - Discharge Diagnosis (1) Type 2 diabetes mellitus Status: Chronic (2) Chronic anticoagulation Status: Chronic (3) Hypertension Status: Chronic (4) History of stroke Status: Chronic (5) Acute CVA (cerebrovascular accident) Status: Acute (6) Acquired aphasia Status: Acute (7) Right sided weakness Status: Chronic (8) Expressive aphasia Status: Chronic Discharge Plan - Discharge Data Condition at Discharge: Stable Discharge Diet: advance to your usual diet Activity: resume usual activities as tolerated, as per physical therapy Hygiene: no restrictions Contact your physician if you experience:: fever over 101, Nausea/Vomiting, Shortness of breath DS: Provider Expected date of discharge: 04/28/17
--- NOTE | 2017-04-28 11:00 | Vascular Surgery Consult Note ---
History of Present Illness Chief complaint: cva with carotid stenosis History of present illness: Mr. Murphy is a 81 year old male Mr. Yoon Murphy an 81-year-old man has been readmitted with a new onset left brain cerebrovascular accident. His past medical history is significant for several strokes involving the right brain. There apparently has been no evidence of significant carotid occlusive disease in the past. He has been maintained on antiplatelet and anticoagulant therapy was on aspirin and Coumadin at the time of this event. MRI and MRA have been done in the MRA is felt to be suboptimal due to patient motion. I have reviewed the MRA and reviewed the report and it suggested moderate stenosis of the left internal carotid artery with note stenosis of the right. I agree with that impression I do not see any type of high-grade critical stenosis nor complex plaque involving the left internal carotid artery based on the MRA. It has been my experience that the MR marlon studies do not give satisfactory visualization of the arteries when compared to formal carotid arteriography or CT angiography. I discussed this with Mr. Murphy's daughter Laura and at this point I think it most appropriate that he go ahead to [facility] and make as much progress as possible and consider CT angiography or formal carotid arteriography in 6-8 weeks if Mr. Murphy and his family do wish to consider carotid endarterectomy. I suspect he will not need that surgery based on our current findings however. Home Medications Medication Instructions Recorded Confirmed Type Atenolol 25 mg PO BID 03/25/16 04/25/17 History Cetirizine Tab [ZyrTEC Tab] 10 mg PO QAM 03/25/16 04/25/17 History Cholecalciferol (Vitamin D3) 2,000 unit PO QAM 03/25/16 04/25/17 History [Vitamin D3] Levothyroxine Tab [Synthroid Tab] 100 mcg PO QAM 03/25/16 04/25/17 History Lisinopril 40 mg PO QAM 03/25/16 04/25/17 History sitaGLIPtin [Januvia] 100 mg PO QAM 03/25/16 04/25/17 History Glimepiride 4 mg PO BID 04/25/17 04/25/17 History Metformin HCl [Metformin HCl ER] 500 mg PO BID W/MEALS 04/25/17 04/25/17 History Warfarin Sodium [Coumadin] 6 mg PO SUTUTHSA@1800 04/25/17 04/25/17 History Aspirin EC Tab 81 mg PO DAILY tablet 04/28/17 Rx Atorvastatin [Lipitor] 40 mg PO BEDTIME tablet 04/28/17 Rx Warfarin [Coumadin] 4 mg PO MOWEFR@1800 tablet 04/28/17 Rx Allergies Allergy/AdvReac Type Severity Reaction Status Date / Time No Known Allergies Allergy Unverified 03/25/16 19:10 Medical,Surgical,& Family Hx - Medical History Cardio: History of: CAD, Hypertension Neurology: History of: Cerebrovascular Accident, TIA HEENT: History of: Ear Problem (wears hearing aids), Eye Problem (wears glasses) Endocrine: History of: Diabetes Mellitus (NIDDM) (type 2), Thyroid Disorder ( hypothyroidism) Respiratory: History of: Respiratory Problems (hx SOB small vessel disease) Genitourinary: History of: Prostate Problems (REMOVAL S/P CA) Gastrointestinal: History of: Hemorrhoids (hemorrhiodectomy 1997) - Surgical History Cardiac Surgeries: Sugical HX of: Cardiac Surgery (CABG 2009) HEENT Surgeries: Surgical HX of: Eye Surgery (eyelid cancer spot removed 2015) Patient denies: Tonsilectomy & Adenoidectomy Abdominal Surgeries: Patient denies: Appendectomy, Cholecystectomy Reproductive Surgeries: Surgical HX of;: Prostate Surgery (1999) Orthopedic Surgeries: Surgical HX of;: Orthopedic Surgery (left rotator cuff repair) - Family History Family History: Reports;: Family Cancer (mother-ovarian, sister-lymphoma, brother-lung, brother-bone), Family Heart Disease (brother, sister) Denies;: Family Diabetes, Family Stroke - Social History Smoking Status: Never smoker Frequency of Alcohol Use: None Type of Drug Use: None Exam - Constitutional Vitals: Period Temp Pulse Resp BP Sys/Motta Pulse Ox Last 24 Hr 97.5 F-98.4 F 50-82 18-23 127-179/72-93 92-96 Quality Measures - VTE Contraindication to Pharmacological VTE Prophylaxis: Already on Theraputic Agent , No Prophylaxis Needed - Stroke Onset of Symptoms Date: 04/23/17 Symptom Onset Unknown: Yes Results - Labs CBC & BMP: 04/27/17 05:26 04/27/17 05:26 Specialty Discharge - Follow Up or Referrals Follow up with: your, PCP [Other] - 1 Month
[2017-04-28] MEDS: INSULIN LISPRO 100 UNIT/ML SUBCUT SCH ×3 (11:46→21:19)
[2017-04-28] MEDS ORDERED: ATORVASTATIN 40 MG TABLET PO SCH (18:00)
[2017-04-28] MEDS ORDERED: GLIMEPIRIDE 4 MG TABLET PO SCH (18:00)
[2017-04-28] MEDS ORDERED: ATENOLOL 25 MG TABLET PO SCH (18:00)
[2017-04-28] MEDS: WARFARIN 3 MG TABLET PO SCH (18:11)
[2017-04-29 07:58] LABS: INR 2.5
[2017-04-29 08:04] LABS: PT Patient Result 28.5 SECS
[2017-04-29] MEDS: INSULIN LISPRO 100 UNIT/ML SUBCUT SCH ×2 (09:13→12:13)
[2017-04-29] MEDS: LEVOTHYROXINE 100 MCG TABLET PO SCH (09:14)
[2017-04-29] MEDS: ATENOLOL 25 MG TABLET PO SCH (09:14)
[2017-04-29] MEDS: sitaGLIPtin 100 MG TABLET PO SCH (09:14)
[2017-04-29] MEDS: LISINOPRIL 20 MG TABLET PO SCH (09:14)
[2017-04-29] MEDS: CETIRIZINE 10 MG TABLET PO SCH (09:14)
[2017-04-29] MEDS: GLIMEPIRIDE 4 MG TABLET PO SCH (09:14)
[2017-04-29] MEDS: CHOLECALCIFEROL 1,000 UNIT TABLET PO SCH (09:14)
[2017-04-29] MEDS: ASPIRIN EC 81 MG TABLET PO SCH (09:14)
[2017-04-29 11:54] VITALS: BP 175/80
[2017-04-29] MEDS ORDERED: ATENOLOL 25 MG TABLET PO SCH (18:00)
[2017-04-29] MEDS ORDERED: WARFARIN 4 MG TABLET PO SCH (18:00)
== END 2017-04-29 13:20 | DRG 65 ==
LOC: EDBD → EDUNIT# → N.ED 11:19 → SUATTDRO 13:15 → N.EDINP 13:15 → N.4E 15:58
PROVIDERS: ADMIT Internal Medicine; ATTEND Family Medicine